=== PATIENT | female | born 1955 | race Caucasian/White ===

== ENCOUNTER → 2017-08-27 | Day surgery (SDC) | payer OTHER ==
[2017-08-25 12:02] LABS: BASOPHILS # (AUTO) 0.1 (0.0-0.1); BASOPHILS % 0.8 % (0.0-1.0); EOSINOPHILS # (AUTO) 0.1 (0.0-0.4); EOSINOPHILS % 1.9 % (0.0-6.0); HEMATOCRIT 41.6 % (34.2-44.1); HEMOGLOBIN 13.6 g/dL (12.0-16.0); LYMPHOCYTES # (AUTO) 2.7 (1.0-3.2); LYMPHOCYTES % 42.5 % (18.0-39.1); MEAN CORPUSCULAR HEMOGLOBIN 32.3 pg (28-32); MEAN CORPUSCULAR HGB CONC 32.7 g/dL (31-35); MEAN CORPUSCULAR VOLUME 98.8 fL (81-99); MONOCYTES # (AUTO) 0.7 (0.2-0.8); MONOCYTES % 10.7 % (4.4-11.3); NEUTROPHILS # (AUTO) 2.8 (2.1-6.9); NEUTROPHILS % 43.9 % (38.7-80.0); PLATELET COUNT 205 x10e3/uL (140-360); RED BLOOD COUNT 4.21 x10e6/uL (3.6-5.1); RED CELL DISTRIBUTION WIDTH 11.9 % (11.7-14.4)
[2017-08-25 12:24] LABS: ANION GAP 14.4 mmol/L (8-16); CALCIUM 9.8 mg/dL (8.4-10.2); CREATININE, SERUM 0.95 mg/dL (0.57-1.11); POTASSIUM 5.4 mmol/L (3.5-5.1)
[~2017-08-27] MED LIST: AMLODIPINE BESYL5 MG PO; ARMOUR THYROID90 MG; BIEST CREAM TOP; BUPIVACAINE HCL 0.5% 10ML MPF VIAL INJ ONE; CEFAZOLIN SOD 2 GM/D5W 50ML 50 ML IV ONE; DEXAMETHASONE SOD PHOS INJ 4 MG/ML VIAL ONE; EPHEDRINE SULFATE INJ 50 MG/10 ML SYR ONE; FENTANYL CITRATE/PF 100MCG/2 ML INJ ONE; KETOROLAC TROMETHAMINE 30 MG/ML VIAL ONE; LEVOCETIRIZINE D5 MG PO; LIDOCAINE HCL 2% LOCAL INJ 5 ML SDV VIAL INJ ONE; LISINOPRIL10 MG PO; MIDAZOLAM HCL 2 MG/2 ML VIAL ONE; NEOSTIGMINE 1 MG/ML 10ML VIAL ONE; ONDANSETRON HCL INJ 2 MG/ML VIAL ONE; PROGESTERONE100 MG PO; PROPOFOL IV EMULSION 10 MG/ML 20 ML VIAL ONE; SEVOFLURANE INHAL SOLN 250 ML PEN BTL ONE; ZOLPIDEM TARTRA10 MG PO
--- NOTE | 2017-08-27 20:53 | Operative Report ---
DATE OF PROCEDURE: August 27, 2017 PREOPERATIVE DIAGNOSIS: Hammertoe 2nd digit, right foot with painful hardware, proximal interphalangeal joint, 2nd digit, right foot. POSTOPERATIVE DIAGNOSIS: Hammertoe 2nd digit, right foot with painful hardware, proximal interphalangeal joint, 2nd digit, right foot. TITLE OF OPERATION: Removal of hardware, right foot and arthrodesis 2nd digit right foot with 0.0 45 K-wire. ANESTHESIA: General endotracheal. HEMOSTASIS: A right thigh tourniquet at 350 mmHg for hemostasis. PROCEDURE IN DETAIL: The patient was taken to the operating room in a mildly sedated and placed upon the operating table in the supine position. Following induction of general anesthetic, the right lower extremity was elevated to 60 degrees to exsanguinate before inflating the pneumatic thigh tourniquet to 350 mmHg for good hemostasis. Right lower extremity was placed upon the operating table prior to performing the following procedure: Procedure #1: Removal of hardware interphalangeal joint 2nd digit, right foot. Linear incision was placed overlying the painful hardware 2nd digit right foot. Incision was deepened via sharp and blunt dissection down at the level of the digital pen. The pen was identified and removed with the appropriate removal device. This was a [employer] hammertoe implant. That area was irrigated with copious amounts of sterile saline solution and the appropriate alignment was obtained with debridement of both cartilaginous surfaces, head of the proximal phalanx and base of the intermediate phalanx. Arthrodesis was then performed with 0.042 K-wire. Appropriate alignment and pinning was performed. The area was irrigated and closed with 3-0 Vicryl and 4-0 nylon. The area was blocked with 0.5 Marcaine and Decadron [place]. Release of the pneumatic thigh tourniquet showing normal hyperemic flush to all digits of the right foot. The area was treated with human tissue allograft to facilitate healing. The release of pneumatic thigh tourniquet did show a normal hyperemic flush. The patient left the operating room with vital signs stable in apparent satisfactory condition, having tolerated both anesthetic and procedure very well. Job#: [id number]
== END | disposition home or self-care (01) ==
LOC: OR 08:04
PROVIDERS: ATTEND Podiatrist Foot Surgery
DX: M20.41 Other hammer toe(s) (acquired), right foot (principal); T84.84XA Pain due to internal orthopedic prosthetic devices, implants and grafts, initial encounter
CPT/HCPCS: 20680; 28285; 36415; 76000; 80048; 85025; 87071; 87075; 87205; J1100; J1885; J2001; J2250; J2405; J2710